=== PATIENT | female | born 1975 | race Caucasian/White ===

== ENCOUNTER → 2017-04-05 | Outpatient (CLI) | payer OTHER ==
[2017-04-05 11:31] LABS: HEMATOCRIT 44.6 % (37.0-47.0); HEMOGLOBIN 14.7 g/dL (12.0-16.0); MEAN CORPUSCULAR HEMOGLOBIN 30.4 PG (27-31); MEAN CORPUSCULAR VOLUME 92.1 FL (81-99); MEAN PLATELET VOLUME 10.3 FL (7.4-12.2); RED BLOOD COUNT 4.84 10^6/uL (4.20-5.40)
[2017-04-05 11:50] LABS: BLOOD UREA NITROGEN 17 mg/dL (7-22); BUN/CREATININE RATIO 18.88 (6-20); CALCIUM 9.5 mg/dL (8.7-10.7); EST GLOMERULAR FILTRATION > 60 (>60 ml/min/1.73m(2)); SERUM ALBUMIN 4.5 g/dL (3.5-4.8); SERUM CHOLESTEROL 231 mg/dL (120-200)
[2017-04-05 11:57] LABS: CHOL/HDL RATIO 1.94 RATIO (0-4.0); HDL CHOLESTEROL 119 mg/dL (40-150)
== END ==
LOC: LAB 11:19
PROVIDERS: ATTEND Obstetrics & Gynecology Gynecology
DX: E03.9 Hypothyroidism, unspecified (principal); R53.81 Other malaise; M79.7 Fibromyalgia
CPT/HCPCS: 36415; 80053; 80061; 84443; 85027

== ENCOUNTER → 2017-06-27 | Outpatient (CLI) | payer OTHER ==
--- NOTE | 2017-06-27 12:41 | DI ---
PA /LATERAL CHEST X-RAY, 06/27/2017 12:02 PM : Clinical History: Cough. Previous Exam: 04/19/2016. There is no acute soft tissue or bony abnormality. Heart size is normal. Lungs are clear. Mediastinal structures are normal. There are no pulmonary nodules. Reading: Normal chest x-ray. There has been no significant interval change.
== END ==
LOC: RAD 11:51
PROVIDERS: ATTEND Obstetrics & Gynecology Gynecology
DX: R05 Cough (principal)
CPT/HCPCS: 71020